=== PATIENT | male | born 1955 | race Caucasian/White ===

== ENCOUNTER 2020-02-21 08:31 | Day surgery (SDC) | payer MEDICARE, OTHER ==
[~2020-02-21] VITALS: Ht 185.4 cm; Wt 95.3 kg
[~2020-02-21 08:31] MED LIST: ATOR20 PO; Flomax0.4 MG PO; LEVSOD150 PO; Norco 5-325 Ta1 EACH PO; Percocet 5-3251 EACH PO; TERA5 PO
== END 2020-02-21 10:35 | disposition home or self-care (01) ==
LOC: ORSCSDS 08:31
PROVIDERS: Surgery
PROC: 0DJD8ZZ Inspection of Lower Intestinal Tract, Via Natural or Artificial Opening Endoscopic (ICD-10-PCS; principal; 2020-02-21 09:45)
DX: Z12.11 Encounter for screening for malignant neoplasm of colon (principal); Z86.010 Personal history of colon polyps; E03.9 Hypothyroidism, unspecified; E78.5 Hyperlipidemia, unspecified; I10 Essential (primary) hypertension; Z79.899 Other long term (current) drug therapy; Z87.891 Personal history of nicotine dependence
CPT/HCPCS: J2704; J7120

== ENCOUNTER 2021-01-03 06:04 | Day surgery (SDC) | payer OTHER ==
[~2021-01-03] VITALS: Ht 184 cm; Wt 96.3 kg
[~2021-01-03 06:04] MED LIST changes: +C COMPLEX1000 M1 PO; +LOSA25 PO; +MULVITA PO; +TADA10TA PO; +VITAMIN D325 MC3 PO; +ZINC220 PO
--- NOTE | 2021-01-03 07:28 | NUR ---
Ambulatory in Day Surgery History, Chart, Medications and Allergies reviewed before start of procedure.Patient confirms NPO status and agrees with scheduled surgery. Patient reports completing Chlorhexadine shower X2 prior to admission to hospital.Surgical site prepped with 2% Chlorhexidine cloth wipe.
--- NOTE | 2021-01-03 08:33 | NUR ---
01/03/21 0833 [facility] [address] DID NOT WANT PRE OP ANTIBIOTICS ORDERED PRIOR TO PROCEDURE.
--- NOTE | 2021-01-03 09:06 | NUR ---
ARRIVED INTO STEP VSS. PORT SITE WITH GLUE IN PLACE NO LEAKAGE. GIVEN JUICE TO DRINK
--- NOTE | 2021-01-03 09:44 | NUR ---
Discharge instructions reviewed with patient. Patient verbalizes understanding. Copy given to patient to take home. Patient States Post-Procedure ride home has been arranged. Discharged via wheelchair to private car for ride home.
== END 2021-01-03 23:05 | disposition home or self-care (01) ==
LOC: ORSCMMR 06:04 → ORD 07:30 → ORSCMMR 07:30
PROVIDERS: Surgery
PROC: 0WQF0ZZ Repair Abdominal Wall, Open Approach (ICD-10-PCS; principal; 2021-01-03 07:30)
DX: K42.9 Umbilical hernia without obstruction or gangrene (principal); I10 Essential (primary) hypertension; Z87.891 Personal history of nicotine dependence; Z79.899 Other long term (current) drug therapy; E78.00 Pure hypercholesterolemia, unspecified
CPT/HCPCS: A9270; J1100; J1885; J2250; J2405; J2704; J3010; J7120